=== PATIENT | male | born 1960 | race Caucasian/White ===

== ENCOUNTER 2017-11-12 16:18 | Inpatient (IN) | payer BC ==
[~2017-11-12] VITALS: Ht 182.9 cm; Wt 85.8 kg
[2017-11-12 17:21] LABS: APPEARANCE CLEAR ((CLEAR)); BILIRUBIN NEGATIVE; BLOOD NEGATIVE; COLOR YELLOW ((YELLOW)); GLUCOSE (STRIP) >=500; KETONES 5; LEUKOCYTES NEGATIVE; NITRITE NEGATIVE; PROTEIN (STRIP) 30; SPECIFIC GRAVITY 1.017 (1.000-1.030); UCUL ADDED? NO; UROBILINOGEN 0.2 MG/DL (0.2-1.0)
[2017-11-12 17:25] LABS: AMYLASE 53 IU/L (1-118); BASOPHIL (%) 0.2 % (0-1); BASOPHIL COUNT 0.1 K/uL (0-0.1); CHLORIDE 97 mEq/L (99-109); EOSINOPHIL (%) 0 % (0-5); HEMATOCRIT 30.3 % (38.0-50.0); HEMOGLOBIN 10.9 G/DL (12.5-16.6); LYMPHOCYTE (%) 3.8 % (15-42); LYMPHOCYTE COUNT 1.4 K/uL (1.0-2.8); MCH 33.1 PG (29.0-34.0); MCV 92.1 FL (86-99); MONOCYTE (%) 8.4 % (3-12); MONOCYTE COUNT 3.1 K/uL (0-0.8); NEUTROPHIL (%) 85.6 % (45-76); NEUTROPHIL COUNT 32.1 K/uL (1.8-6.4); PLATELET COUNT 351 K/uL (156-360); POTASSIUM 4.1 mEq/L (3.7-5.4); RBC DIS.WIDTH-CV 12.4 % (11.8-14.6); RBC DIS.WIDTH-SD 41.4 % (39-53); RED BLOOD COUNT 3.29 M/uL (4.00-5.50); SODIUM 135 mEq/L (136-147)
[2017-11-12 17:27] LABS: GLUCOSE 206 mg/dL (70-99); WHITE BLOOD COUNT 37.4 K/uL (4.1-10.2)
[2017-11-12 17:30] LABS: CREATININE 2.3 mg/dL (0.6-1.3); GFR ESTIMATE (CALCULATED) 31 mL/min/ (58.99-99999); SERUM ETHYL ALCOHOL < 10 mg/dL
[2017-11-12 17:31] LABS: UREA NITROGEN (BUN) 22 mg/dL (9-23)
[2017-11-12 17:33] LABS: LIPASE 21 U/L (1.0-51.0)
[2017-11-12 17:37] LABS: AMPHETAMINE NEGATIVE (500 ng/mL); BARBITURATES NEGATIVE (200 ng/mL); BENZODIAZEPINES NEGATIVE (150 ng/mL); BUPRENORPHINE NEGATIVE (10 ng/mL); COCAINE NEGATIVE (150 ng/mL); METHADONE NEGATIVE (200 ng/mL); METHAMPHETAMINE NEGATIVE (500 ng/mL); OPIATES (MORPHINE) NEGATIVE (100 ng/mL); OXYCODONE NEGATIVE (100 ng/mL); PHENCYCLIDINE NEGATIVE (25 ng/mL); PROPOXYPHENE NEGATIVE (300 ng/mL); THC CANNABINOIDS NEGATIVE (50 ng/mL); TRICYCLIC ANTIDEPRESSANTS NEGATIVE (300 ng/mL)
[2017-11-12 18:10] LABS: CREATINE KINASE 1528 IU/L (1-294)
[2017-11-12 19:03] LABS: ACETAMINOPHEN (TYLENOL) < 10 mcg/mL (10-30); SALICYLATE < 5.0 MG/DL (15-30)
[2017-11-12 21:28] LABS: COMMENTS - BLOOD GASES A+C+; DEVICE VENT; FI02 100 %; MECHANICAL RATE 20 resp/min; MODE ACVC+; PCO2 34 mm Hg (35-45); PEEP 5 CM/H20; PO2 224 mm Hg (80-100); SITE LR; TIDAL VOLUME 450 ML; TOTAL RESP RATE 25 resp/min; pH 7.46 (7.35-7.45)
[2017-11-12 21:29] LABS: BASE EXCESS 0.6 mEq/L (-3 to +3); BICARBONATE 24.2 mEq/L (22-26); CARBOXY HGB 0.7 % (0-5); METHEMOGLOBIN 1.6 % (0-1.5); O2 SATURATION (CALCULATED) 99.1 % (95-99)
[2017-11-12 22:00] VITALS: BP 147/77
[2017-11-12 22:04] LABS: INTER. NORMALIZED RATIO 1.2
[2017-11-12 22:07] LABS: PTT 20.1 SEC (25-37)
[2017-11-12 22:22] LABS: CHLORIDE 102 MEQ/L (99-109); POTASSIUM 4.1 MEQ/L (3.7-5.4); SODIUM 134 MEQ/L (136-147); TRIGLYCERIDES 42 MG/DL (Normal: <150); UREA NITROGEN (BUN) 23 mg/dL (9-23)
[2017-11-12 22:26] LABS: CREATININE 1.3 MG/DL (0.6-1.3); GFR ESTIMATE (CALCULATED) > 59 mL/min/ (58.99-99999); GLUCOSE 115 mg/dL (70-99)
[2017-11-12 22:52] LABS: HEMATOCRIT 26.6 % (38.0-50.0); HEMOGLOBIN 9.7 G/DL (12.5-16.6); MCH 32.9 PG (29.0-34.0); MCHC 36.5 G/DL (30.0-36.0); MCV 90.2 FL (86-99); PLATELET COUNT 267 K/uL (156-360); RBC DIS.WIDTH-CV 12.4 % (11.8-14.6); RBC DIS.WIDTH-SD 40.5 % (39-53); RED BLOOD COUNT 2.95 M/uL (4.00-5.50)
[2017-11-12 22:56] LABS: WHITE BLOOD COUNT 31.7 K/uL (4.1-10.2)
[2017-11-12 23:00] VITALS: BP 136/75
[2017-11-13] VITALS (22 sets, daily range): BP systolic 100–150; BP diastolic 47–88
[2017-11-13 05:20] LABS: BASOPHIL (%) 0.1 % (0-1); EOSINOPHIL (%) 0 % (0-5); HEMATOCRIT 22.6 % (38.0-50.0); HEMOGLOBIN 8.3 G/DL (12.5-16.6); IMMATURE GRANULOCYTE (%) 0.7 % (0.0-0.7); LYMPHOCYTE (%) 6.6 % (15-42); LYMPHOCYTE COUNT 1.6 K/uL (1.0-2.8); MCH 33.3 PG (29.0-34.0); MCHC 36.7 G/DL (30.0-36.0); MCV 90.8 FL (86-99); MONOCYTE (%) 7.9 % (3-12); MONOCYTE COUNT 1.9 K/uL (0-0.8); NEUTROPHIL (%) 84.7 % (45-76); NEUTROPHIL COUNT 20.4 K/uL (1.8-6.4); PLATELET COUNT 233 K/uL (156-360); RBC DIS.WIDTH-CV 12.6 % (11.8-14.6); RBC DIS.WIDTH-SD 41.1 % (39-53); RED BLOOD COUNT 2.49 M/uL (4.00-5.50)
[2017-11-13 05:25] LABS: COMMENTS - BLOOD GASES C+; DEVICE VENT; FI02 60 %; MECHANICAL RATE 20 resp/min; MODE A/CVC+; O2 SATURATION (CALCULATED) 99.2 % (95-99); PCO2 35 mm Hg (35-45); PEEP 5 CM/H20; PO2 290 mm Hg (80-100); SITE LR; TIDAL VOLUME 450 ML; TOTAL RESP RATE 23 resp/min
[2017-11-13 05:26] LABS: BICARBONATE 27.3 mEq/L (22-26); CARBOXY HGB 0.8 % (0-5); METHEMOGLOBIN 1.4 % (0-1.5)
[2017-11-13 05:40] LABS: ALBUMIN 2.7 G/DL (3.2-4.8); ALKALINE PHOSPHATASE 35 IU/L (3-129); ALT (GPT) 30 IU/L (3-49); AST (GOT) 93 IU/L (2-34); CHLORIDE 105 MEQ/L (99-109); CREATININE 1.2 MG/DL (0.6-1.3); GFR ESTIMATE (CALCULATED) > 59 mL/min/ (58.99-99999); GLUCOSE 122 mg/dL (70-99); POTASSIUM 4.3 MEQ/L (3.7-5.4); SODIUM 138 MEQ/L (136-147); TOTAL BILIRUBIN 0.4 MG/DL (0.0-1.0); TOTAL PROTEIN 4.3 G/DL (6.4-8.3); UREA NITROGEN (BUN) 17 mg/dL (9-23)
[2017-11-14] VITALS (24 sets, daily range): BP systolic 102–178; BP diastolic 49–102
[2017-11-14 09:10] LABS: BASOPHIL (%) 0.1 % (0-1); EOSINOPHIL (%) 0.2 % (0-5); HEMATOCRIT 23.8 % (38.0-50.0); HEMOGLOBIN 8.2 G/DL (12.5-16.6); IMMATURE GRANULOCYTE (%) 0.5 % (0.0-0.7); LYMPHOCYTE COUNT 2.2 K/uL (1.0-2.8); MCH 33.2 PG (29.0-34.0); MCHC 34.5 G/DL (30.0-36.0); MONOCYTE (%) 7.7 % (3-12); MONOCYTE COUNT 1.2 K/uL (0-0.8); NEUTROPHIL (%) 77.5 % (45-76); PLATELET COUNT 213 K/uL (156-360); RBC DIS.WIDTH-CV 13.2 % (11.8-14.6); RBC DIS.WIDTH-SD 46.8 % (39-53); RED BLOOD COUNT 2.47 M/uL (4.00-5.50); WHITE BLOOD COUNT 15.5 K/uL (4.1-10.2)
[2017-11-14 09:11] LABS: MCV 96.4 FL (86-99)
[2017-11-14 09:33] LABS: ALBUMIN 2.8 G/DL (3.2-4.8); ALKALINE PHOSPHATASE 39 IU/L (3-129); ALT (GPT) 35 IU/L (3-49); AST (GOT) 93 IU/L (2-34); CHLORIDE 112 MEQ/L (99-109); CREATININE 0.8 MG/DL (0.6-1.3); GFR ESTIMATE (CALCULATED) > 59 mL/min/ (58.99-99999); GLUCOSE 93 mg/dL (70-99); MAGNESIUM 2.3 mg/dl (1.3-2.7); PHOSPHORUS 2.3 mg/dL (2.5-4.9); POTASSIUM 3.8 MEQ/L (3.7-5.4); SODIUM 144 MEQ/L (136-147); TOTAL PROTEIN 4.6 G/DL (6.4-8.3); UREA NITROGEN (BUN) 14 mg/dL (9-23)
[2017-11-14 09:35] LABS: TOTAL BILIRUBIN 0.3 MG/DL (0.0-1.0)
[2017-11-14] MEDS ORDERED: IRBESARTAN150 MG PO (12:47)
[2017-11-14] MEDS ORDERED: CYMBALTA60 MG PO (12:47)
[2017-11-14] MEDS ORDERED: L-METHYLFOLATE15 M1 PO (12:49)
[2017-11-14] MEDS ORDERED: PROVIGIL200 MG PO (12:49)
[2017-11-14] MEDS ORDERED: GEODON80 MG PO (12:50)
[2017-11-14 13:54] LABS: CREATINE KINASE 1550 IU/L (1-294)
[2017-11-15] VITALS (7 sets, daily range): BP systolic 115–151; BP diastolic 54–105
[2017-11-15 07:13] LABS: BASOPHIL (%) 0.2 % (0-1); EOSINOPHIL (%) 1.6 % (0-5); EOSINOPHIL COUNT 0.2 K/uL (0-0.3); HEMOGLOBIN 8.3 G/DL (12.5-16.6); IMMATURE GRANULOCYTE (%) 0.4 % (0.0-0.7); LYMPHOCYTE (%) 11.8 % (15-42); LYMPHOCYTE COUNT 1.6 K/uL (1.0-2.8); MCH 32.7 PG (29.0-34.0); MCHC 34.6 G/DL (30.0-36.0); MCV 94.5 FL (86-99); MONOCYTE (%) 6.5 % (3-12); MONOCYTE COUNT 0.9 K/uL (0-0.8); NEUTROPHIL (%) 79.5 % (45-76); NEUTROPHIL COUNT 10.7 K/uL (1.8-6.4); PLATELET COUNT 272 K/uL (156-360); RBC DIS.WIDTH-CV 13.1 % (11.8-14.6); RBC DIS.WIDTH-SD 45.5 % (39-53); RED BLOOD COUNT 2.54 M/uL (4.00-5.50); WHITE BLOOD COUNT 13.5 K/uL (4.1-10.2)
[2017-11-15 07:39] LABS: ALBUMIN 2.7 G/DL (3.2-4.8); ALKALINE PHOSPHATASE 39 IU/L (3-129); ALT (GPT) 40 IU/L (3-49); AST (GOT) 82 IU/L (2-34); CHLORIDE 112 MEQ/L (99-109); CREATININE 0.8 MG/DL (0.6-1.3); GFR ESTIMATE (CALCULATED) > 59 mL/min/ (58.99-99999); GLUCOSE 97 mg/dL (70-99); PHOSPHORUS 2.5 mg/dL (2.5-4.9); POTASSIUM 3.4 MEQ/L (3.7-5.4); SODIUM 142 MEQ/L (136-147); TOTAL PROTEIN 4.6 G/DL (6.4-8.3); UREA NITROGEN (BUN) 8 mg/dL (9-23)
[2017-11-15 07:47] LABS: MAGNESIUM 1.8 mg/dl (1.3-2.7); TOTAL BILIRUBIN 0.4 MG/DL (0.0-1.0)
[2017-11-16 00:29] VITALS: BP 145/88
[2017-11-16 06:56] LABS: BASOPHIL (%) 0.3 % (0-1); EOSINOPHIL (%) 4.2 % (0-5); EOSINOPHIL COUNT 0.4 K/uL (0-0.3); HEMATOCRIT 24.3 % (38.0-50.0); HEMOGLOBIN 8.5 G/DL (12.5-16.6); IMMATURE GRANULOCYTE (%) 0.5 % (0.0-0.7); LYMPHOCYTE (%) 15.7 % (15-42); LYMPHOCYTE COUNT 1.5 K/uL (1.0-2.8); MCH 32.6 PG (29.0-34.0); MCV 93.1 FL (86-99); MONOCYTE (%) 8.1 % (3-12); MONOCYTE COUNT 0.8 K/uL (0-0.8); NEUTROPHIL (%) 71.2 % (45-76); NEUTROPHIL COUNT 6.6 K/uL (1.8-6.4); PLATELET COUNT 296 K/uL (156-360); RBC DIS.WIDTH-CV 12.8 % (11.8-14.6); RBC DIS.WIDTH-SD 43.4 % (39-53); RED BLOOD COUNT 2.61 M/uL (4.00-5.50); WHITE BLOOD COUNT 9.3 K/uL (4.1-10.2)
[2017-11-16 07:20] LABS: ALBUMIN 2.8 G/DL (3.2-4.8); ALKALINE PHOSPHATASE 38 IU/L (3-129); ALT (GPT) 40 IU/L (3-49); AST (GOT) 55 IU/L (2-34); CHLORIDE 109 MEQ/L (99-109); CREATINE KINASE 420 IU/L (1-294); CREATININE 0.7 MG/DL (0.6-1.3); GFR ESTIMATE (CALCULATED) > 59 mL/min/ (58.99-99999); GLUCOSE 103 mg/dL (70-99); MAGNESIUM 1.8 mg/dl (1.3-2.7); PHOSPHORUS 2.9 mg/dL (2.5-4.9); POTASSIUM 3.7 MEQ/L (3.7-5.4); SODIUM 141 MEQ/L (136-147); TOTAL BILIRUBIN 0.4 MG/DL (0.0-1.0); TOTAL PROTEIN 4.9 G/DL (6.4-8.3); UREA NITROGEN (BUN) 8 mg/dL (9-23)
[2017-11-16 08:03] VITALS: BP 145/82
[2017-11-16] MEDS ORDERED: CLEOCIN150 MG PO (12:40)
[2017-11-16] MEDS ORDERED: NICORELIEF2 MG BC (12:40)
[2017-11-18 14:31] LABS: HEMOGLOBIN A1c (GLYCOHEMOGLOB) 4.9 % (Below 5.7)
== END 2017-11-16 15:11 | DRG 907 ==
LOC: TRA → EDBD 16:18 → TRA 18:51 → 4WEST 18:51 → SDC 18:52 → 4WEST 20:15 → ENRESERV 21:56 → 4WEST 22:46 → ENRESERV 11-15 01:50 → 4WEST 11-15 02:00 → 3EAST 11-15 03:08
PROVIDERS: Emergency Medicine; Internal Medicine; Surgery
PROC: 5A1945Z Respiratory Ventilation, 24-96 Consecutive Hours (ICD-10-PCS; principal; 2017-11-12)
PROC: 0BH17EZ Insertion of Endotracheal Airway into Trachea, Via Natural or Artificial Opening (ICD-10-PCS; 2017-11-12)
PROC: 0KBB0ZZ Excision of Left Lower Arm and Wrist Muscle, Open Approach (ICD-10-PCS; 2017-11-12)
PROC: 0KB90ZZ Excision of Right Lower Arm and Wrist Muscle, Open Approach (ICD-10-PCS; 2017-11-12)
PROC: 0KQB0ZZ Repair Left Lower Arm and Wrist Muscle, Open Approach (ICD-10-PCS; 2017-11-12)
PROC: 0KQ90ZZ Repair Right Lower Arm and Wrist Muscle, Open Approach (ICD-10-PCS; 2017-11-12)
DX: S61.522A Laceration with foreign body of left wrist, initial encounter (principal); J96.00 Acute respiratory failure, unspecified whether with hypoxia or hypercapnia; R40.20 Unspecified coma; R45.851 Suicidal ideations; M62.82 Rhabdomyolysis; E87.2 Acidosis; F33.2 Major depressive disorder, recurrent severe without psychotic features; S61.521A Laceration with foreign body of right wrist, initial encounter; X78.1XXA Intentional self-harm by knife, initial encounter; Y92.838 Other recreation area as the place of occurrence of the external cause; I10 Essential (primary) hypertension; G47.00 Insomnia, unspecified; E86.0 Dehydration; E87.6 Hypokalemia; Z91.5 Personal history of self-harm; F17.210 Nicotine dependence, cigarettes, uncomplicated; R40.2412 Glasgow coma scale score 13-15, at arrival to emergency department; R40.2433 Glasgow coma scale score 3-8, at hospital admission; D64.9 Anemia, unspecified; R56.9 Unspecified convulsions; T43.022A Poisoning by tetracyclic antidepressants, intentional self-harm, initial encounter; F41.9 Anxiety disorder, unspecified; G30.9 Alzheimer's disease, unspecified; F02.80 Dementia in other diseases classified elsewhere, unspecified severity, without behavioral disturbance, psychotic disturbance, mood disturbance, and anxiety; Z78.1 Physical restraint status
CPT/HCPCS: 36600; 70450; 71045; 71046; 80048; 80048 91; 80053; 80202; 81003; 82150; 82550; 83036; 83605; 83690; 83735; 84100; 84478; 85025; 85027; 85610; 85730; 86850; 86900; 86901; 87040; 87070; 87077; 87205; 87641; 87801; 93005; 94002; 94640; 94799; 99281; 99285; G0480; J0330; J1650; J2060; J2250; J2543; J2704; J3010; J3370; J7030; J7050; S0020; S0028

== ENCOUNTER 2017-11-16 15:42 | Inpatient (IN) | payer BC ==
[~2017-11-16 15:42] MED LIST: CLEOCIN150 MG PO; CYMBALTA60 MG PO; GEODON80 MG PO; IRBESARTAN150 MG PO; L-METHYLFOLATE15 M1 PO; NICORELIEF2 MG BC; PROVIGIL200 MG PO
[2017-11-16 15:51] VITALS: BP 163/89
[2017-11-17 07:32] VITALS: BP 131/75
[2017-11-17 15:17] VITALS: BP 106/69
[2017-11-18 08:04] VITALS: BP 117/68
[2017-11-18 16:23] VITALS: BP 133/58
[2017-11-18 16:28] VITALS: BP 114/61
[2017-11-19 08:08] VITALS: BP 123/59
[2017-11-19] MEDS ORDERED: NIFEREX-150,FE150 MG PO (11:30)
[2017-11-19] MEDS ORDERED: SILVADENE,SSD,T50 GM TP (11:31)
[2017-11-19] MEDS ORDERED: MIRTAZAPINE30 MG PO (11:31)
[2017-11-19 12:36] LABS: HEMATOCRIT 33.2 % (38.0-50.0); MCH 32.7 PG (29.0-34.0); MCHC 34.3 G/DL (30.0-36.0); MCV 95.1 FL (86-99); RBC DIS.WIDTH-CV 13.9 % (11.8-14.6); RBC DIS.WIDTH-SD 44.4 % (39-53); WHITE BLOOD COUNT 13.1 K/uL (4.1-10.2)
[2017-11-19 12:37] LABS: HEMOGLOBIN 11.4 G/DL (12.5-16.6); PLATELET COUNT 628 K/uL (156-360); RED BLOOD COUNT 3.49 M/uL (4.00-5.50)
[2017-11-19 16:25] VITALS: BP 114/62
== END 2017-11-19 18:25 | DRG 885 ==
LOC: PSY 15:42 → 1WEST 15:44
PROVIDERS: Psychiatry & Neurology Psychiatry
DX: F33.2 Major depressive disorder, recurrent severe without psychotic features (principal); D50.0 Iron deficiency anemia secondary to blood loss (chronic); S66.922D Laceration of unspecified muscle, fascia and tendon at wrist and hand level, left hand, subsequent encounter; S61.512D Laceration without foreign body of left wrist, subsequent encounter; S66.921D Laceration of unspecified muscle, fascia and tendon at wrist and hand level, right hand, subsequent encounter; S61.511D Laceration without foreign body of right wrist, subsequent encounter; X78.9XXD Intentional self-harm by unspecified sharp object, subsequent encounter; Z91.5 Personal history of self-harm; I10 Essential (primary) hypertension
CPT/HCPCS: 85027; 97150 GO